=== PATIENT | female | born 1960 | race Caucasian/White ===

== ENCOUNTER → 2021-08-22 | Day surgery (SDC) | payer BC ==
[~2021-08-22] VITALS: Ht 167.6 cm; Wt 78.0 kg
[~2021-08-22] MED LIST: LIDOCAINE 1%/EPI 1:100,000 20 ML VIAL. INJ ONE; LIDOCAINE 1%/EPI 1:100,000 20 ML VIAL. ONE
[2021-08-22 12:20] VITALS: BP 128/84
[2021-08-22 12:45] VITALS: BP 128/84
--- NOTE | 2021-08-22 13:06 | PDOC4 ---
Operative Note Operative Note Date: August 222021 at 1:03 PM Preoperative diagnosis: Upper back mass Postoperative diagnosis: Same Procedure: Excision of upper back mass Surgeon: Toño Specimen: Back mass Dictation: Patient is a 60-year-old female who had a inflamed mass on her upper back was placed on antibiotics which improved still has a mass. Procedure of excision was explained to the patient detail was benefits were also discussed including bleeding infection alternatives this procedure also discussed with the patient who seemed to understand and gave a verbal written consent to have procedure performed. Patient was taken to the minor's room placed in the prone positioning area on her back was prepped and draped usual sterile fashion using ChloraPrep. I around the area of the mass was injected with 1% lidocaine with epinephrine once this was anesthetized an elliptical incision was made with 15 blade scalpel was carried down through the subcutaneous tissue using the 15 blade scalpel to excise the mass which appeared to be a sebaceous cyst 1 x 1 cm with 1 cm margin. This was sent for pathology. The wound was then closed in 2 layers deep layer running 3-0 Vicryl and the skin was reapproximated for subcuticular Monocryl Mastisol Steri-Strips and island dressing were applied. Patient tolerated procedure well was discharged home in stable condition all sponge instrument needle counts listed as correct estimated blood loss less than 5 mL CLAUDETTE FELDER MD Aug 22, 2021 13:06
--- NOTE | 2021-08-22 13:07 | DISCH ---
DISCHARGE INSTRUCTIONS Condition on Discharge Condition on Discharge: Stable Activity After Discharge Activity Instructions for Disc: Resume previous activity Diet after Discharge Diet after Discharge: Regular Wound Incision Care Other wound/incision instructi: Christina shower in 24 hours Contacting the [facility] after DC Call your doctor for: If your condition worsens Follow-Up Follow up with: Dr. Felder in 2-week CLAUDETTE FELDER MD Aug 22, 2021 13:06
--- NOTE | 2021-08-23 18:06 | PATHOLOGY ---
[facility] Accession Number: [id number] . 01 Material submitted: . back - MASS OF BACK . 01 Clinical history: . INCISION AND DRAINAGE OF SEBACEOUS CYST OF BACK . 02 Diagnosis: Skin and subcutaneous tissue, incision and drainage back cyst: - Epidermal inclusion cyst, ruptured, with acute and chronic inflammation and focal histiocytic and foreign body giant cell reaction to keratinaceous material. (JPM:cory; 08/23/2021) S 08/23/2021 1406 Local . 02 Comment: There is no evidence of malignancy. (JPM:cory; 08/23/2021) . 02 Electronically signed: . Lorne Peters MD, Pathologist NPI- [id number] . 01 Gross description: . The specimen is received in formalin, labeled "Hue Case, mass of back". Received is a 2.4 x 1.1 x 0.5 cm ellipse of skin, with underlying soft tissue measuring 2.0 x 0.5 x 1.3 cm. The epidermal surface is pale juárez and wrinkled and displays a poorly defined, pink-white to yellow-juárez crusted lesion measuring 0.7 x 0.7 cm. The surgical margin is inked. The specimen is serially sectioned and entirely submitted in cassettes A1-A3, with the tips placed in cassette A3. ([facility]; 08/22/2021) NRI/NRI 08/22/2021 192 Local . 02 Pathologist provided ICD-10: L72.0 . 02 CPT . 586889 Specimen Comment: A courtesy copy of this report has been sent to [phone], [phone] Specimen Comment: [id number] Specimen Comment: Report sent to / DR BO Performed at: 01 [facility] [address], [place], [place] [id number] MD Jimmy Perrin MD Phone: [phone] Performed at: 02 [facility] [address], [place] [id number] MD Lorne Peters MD Phone: [phone]
== END | disposition home or self-care (01) ==
LOC: SURG 11:58
PROVIDERS: ATTEND Surgery
DX: L72.0 Epidermal cyst (principal); I10 Essential (primary) hypertension; Z79.899 Other long term (current) drug therapy; Z98.890 Other specified postprocedural states; Z88.2 Allergy status to sulfonamides
CPT/HCPCS: 11403; J3490; 88304